=== PATIENT | male | born 1960 | race Hispanic/Latino ===

== ENCOUNTER 2016-12-10 18:33 | Emergency (ER) | payer MEDICARE, OTHER ==
[2016-12-10 18:35] VITALS: BMI 25.8
[2016-12-10] MEDS ORDERED: Lidocaine 5% Patch TD ONE (20:54)
== END 2016-12-10 21:06 | disposition home or self-care (01) ==
LOC: C.ER 18:33
DX: G89.29 Other chronic pain (principal); M54.5 Low back pain
CPT/HCPCS: 96372; 99281; J1885

== ENCOUNTER 2018-05-10 17:00 | Emergency (ER) | payer MEDICARE ==
[2018-05-10 17:00] VITALS: BMI 25.8
--- NOTE | 2018-05-10 17:43 | C.PDOC ---
History Of Present Illness Mr. Monique is a 57 year old [place] male PMH HTN, CAD s/p stent, COPD c/o L sided chest pain x3 days. The pain came on gradually, denies activity or exacerbating event. Advil Liquid Caps twice a day to no relief, moving his L UE exacerbate the pain. It's an aching pressure that ebbs every 2 hours without radiation to the neck, arm, or midsterum. States the pain is 10/10 and kept him from doing his usual hip PT (bilateral hip replacements: L in 05/11, R in 01/10). Admits shortness of breath and new pedal edema. Of note: has has a f/u appointment with drum sealer Dr. Martell next Marta, 05/19. Has been without any medications for the last 4 days. Is requesting oxycontin for pain management as he went through his allotted pain pills over a month ago, by taking 4 a day without tapering. <Octavia Traore - Last Filed: 05/10/18 19:39> <Octavia Traore - Last Filed: 05/10/18 19:39> <Ann Fink - Last Filed: 05/10/18 23:43> Time Seen by Provider: 05/10/18 17:40 Chief Complaint (Nursing): Chest Pain Past Medical History Vital Signs: Last Vital Signs Temp 98.3 F 05/10/18 17:03 Pulse 122 H 05/10/18 17:03 Resp 20 05/10/18 17:45 BP 125/84 05/10/18 17:03 Pulse Ox 100 05/10/18 17:50 - [facility] Procedures FLUOROSCOPY OF MULT COR ART USING L OSM CONTRAST (11/21/15) FLUOROSCOPY OF RIGHT AND LEFT HEART USING L OSM CONTRAST (11/21/15) INTRODUCE OF OTH THERAP SUBST INTO RESP TRACT, VIA OPENING (04/02/16) MEASURE CARDIAC SAMPL & PRESSURE, BILATERAL, PERC (11/21/15) NEBULIZER THERAPY (11/30/13) THERAPEUTIC EXERCISE TREATMENT OF MUSCULOSK LOW BACK/LE (04/02/16) <Octavia Traore - Last Filed: 05/10/18 19:39> Vital Signs: Last Vital Signs Temp 98.3 F 05/10/18 17:03 Pulse 122 H 05/10/18 17:03 Resp 22 05/10/18 17:03 BP 125/84 05/10/18 17:03 Pulse Ox 100 05/10/18 17:03 - Medical History PMH: Asthma, Bronchitis, CAD, CHF, COPD, Fractures (right foot), Hiatal Hernia, HTN, Hyperlipidemia, Pneumothorax, Schizophrenia (denies) Denies: Chronic Kidney Disease Surgical History: Coronary Stent (x2) - [facility] Procedures FLUOROSCOPY OF MULT COR ART USING L OSM CONTRAST (11/21/15) FLUOROSCOPY OF RIGHT AND LEFT HEART USING L OSM CONTRAST (11/21/15) INTRODUCE OF OTH THERAP SUBST INTO RESP TRACT, VIA OPENING (04/02/16) MEASURE CARDIAC SAMPL & PRESSURE, BILATERAL, PERC (11/21/15) NEBULIZER THERAPY (11/30/13) THERAPEUTIC EXERCISE TREATMENT OF MUSCULOSK LOW BACK/LE (04/02/16) Family History: States: Unknown Family Hx - Social History Hx Tobacco Use: Yes (10-15 cigarettes daily) Hx Alcohol Use: No Hx Substance Use: No - Immunization History Hx Tetanus Toxoid Vaccination: No Hx Influenza Vaccination: No Hx Pneumococcal Vaccination: No <Ann Fink - Last Filed: 05/10/18 23:43> Physical Exam - Physical Exam Appears: Non-toxic, No Acute Distress, Agitated Skin: Normal Color, Warm Head: Atraumatic, Normacephalic Eye(s): bilateral: Normal Inspection, PERRL, EOMI Oral Mucosa: Moist Teeth: No Dentures, Other (none) Chest: Symmetrical, Tenderness (L anterior anxillary pec major insertion TTP) Cardiovascular: Rhythm Regular (tachy) Respiratory: Normal Breath Sounds, Decreased Breath Sounds, Rales (bilateral lower lobe mild rales), Wheezing (diffuse expiratory wheeze) Gastrointestinal/Abdominal: Normal Exam, Bowel Sounds, Soft, No Tenderness, No Distention, No Guarding, No Rebound Extremity: Normal ROM, Tenderness (incision sites healing well, paper machine back tender to deep palpation), Pedal Edema (non pitting edema bilaterally) Pulses: Left Radial: Normal, Right Radial: Normal, Left Dorsalis Pedis: Normal, Right Dorsalis Pedis: Normal DTR: Knee (R): 2+, Knee (L): 2+ Neurological/Psych: Oriented x3, Normal Speech, Normal Cognition Gait: Steady <Octavia Traore - Last Filed: 05/10/18 19:39> ED Course And Treatment - Laboratory Results Result Diagrams: 05/10/18 18:36 05/10/18 18:36 <Octavia Traore - Last Filed: 05/10/18 19:39> - Laboratory Results Result Diagrams: 05/10/18 18:36 05/10/18 18:36 O2 Sat by Pulse Oximetry: 100 <Ann Fink - Last Filed: 05/10/18 23:43> Supervising Attending Note - Supervising Attending Note The Documented history was done by the: Physician Explosive Operator Supervisor, Attending Physician The documented physical exam was done by the: Physician Explosive Operator Supervisor, Attending Physician - Attestation: I have personally seen and examined this patient.: Yes I have fully participated in the care of the patient.: Yes I have reviewed all pertinent clinical information, including history, physical exam and plan: Yes <Ann Fink - Last Filed: 05/10/18 23:43> Medical Decision Making Medical Decision Making: CBC, CMP unremarkable Mg 2.1, P 3.4, BNP 60.4 Trop neg, d-dimer 532 coags normal EtOH neg CXR PA/L - no focal consolidation. Large retrocardiac air-fluid level likely related to large hiatal hernia. EKG - Sinus tachy at 121, left axis deviation, no ST elevations UDS Toradol, Flexiril given for pain <Octavia Traore - Last Filed: 05/10/18 19:39> Medical Decision Making: CT Impression: 1. No evidence of pulmonary embolism 2. Relatively severe upper lobes predominant paraseptal and centrilobar emphysema. 3. Severe biapical fibronodular scarring. 4. Large hiatal hernia. 5. The heart is mildly enlarged with coronary arterial calcifications. 6. Mild bilateral adenopathy, non-specific possibly reactive. 1130 On reeval pt is stable with no changes. Tachycardic but no acute distress. Repeat troponin negative. Stable for dc. <Ann Fink - Last Filed: 05/10/18 23:43> Disposition <Octavia Traore - Last Filed: 05/10/18 19:39> Counseled Patient/Family Regarding: Studies Performed, Diagnosis - Disposition Disposition Time: 23:39 <Ann Fink - Last Filed: 05/10/18 23:43> - Disposition Referrals: [facility] [Outside] [facility] [place] [Outside] Disposition: HOME/ ROUTINE Condition: STABLE Additional Instructions: follow up at clinic in 1-2 days for reevaluation Instructions: Chest Pain That Is Not Caused by the Heart (DC), Tachycardia (DC) Forms: [employer] (Setswana) - Clinical Impression Clinical Impression: Chest wall pain - PA / NNP / Resident Statement MD/DO has reviewed & agrees with the documentation as recorded. MD/DO has examined the patient and agrees with the treatment plan. <Octavia Traore - Last Filed: 05/10/18 19:39>
[2018-05-10 18:40] LABS: BASO # 0.1 K/uL (0.0-0.2); BASO % 0.7 % (0.0-2.0); EOS # 0.6 K/uL (0.0-0.7); EOS % 6.3 % (0.0-4.0); LYMPH # 2.6 K/uL (1.0-4.3); LYMPH % 29.1 % (20.0-40.0); MEAN CORPUSCULAR HEMOGLOBIN 22.9 pg (27.0-31.0); MEAN CORPUSCULAR HGB CONC 31.4 g/dL (33.0-37.0); MEAN PLATELET VOLUME 8.6 fL (7.2-11.7); MONO # 0.6 K/uL (0.0-0.8); MONO % 6.1 % (0.0-10.0); NEUT # 5.2 K/uL (1.8-7.0); NEUT % 57.8 % (50.0-75.0); RBC 4.78 Mil/uL (4.40-5.90); RED CELL DISTRIBUTION WIDTH 17.3 % (11.5-14.5)
--- NOTE | 2018-05-10 18:47 | RAD ---
HISTORY: SOB COMPARISON: Chest x-ray performed 08/23/15 TECHNIQUE: Chest PA and lateral FINDINGS: LUNGS: Biapical pleural thickening. No focal consolidation. Please note that chest x-ray has limited sensitivity for the detection of pulmonary masses. PLEURA: No significant pleural effusion identified. No definite pneumothorax . CARDIOVASCULAR: Heart size appears within normal limits.Atherosclerotic calcification of the aorta. OSSEOUS STRUCTURES: Osseous demineralization. Mild degenerative changes. VISUALIZED UPPER ABDOMEN: Retrocardiac air-fluid level likely related to large hiatal hernia. OTHER FINDINGS: None. IMPRESSION: No focal consolidation. Large retrocardiac air-fluid level likely related to large hiatal hernia.
[2018-05-10 18:53] LABS: ALB/GLOB RATIO 1.1 (1.0-2.1); ALBUMIN 3.6 g/dL (3.5-5.0); ALT/SGPT 26 U/L (21-72); AST/SGOT 21 U/L (17-59); BLOOD UREA NITROGEN 10 mg/dL (9-20); CALCIUM 9.1 mg/dl (8.6-10.4); GFR NON-AFRICAN AMERICAN > 60
[2018-05-10 19:04] LABS: B-TYPE NATRIURETIC PEPTIDE 60.4 pg/mL (0-900)
[2018-05-10 19:10] LABS: INR 1.1; PROTHROMBIN TIME 11.5 SECONDS (9.7-12.2)
[2018-05-10 19:38] LABS: BENZODIAZEPINES, UR NEGATIVE (NEGATIVE); OPIATES, UR NEGATIVE (NEGATIVE); PHENCYCLIDINE, UR NEGATIVE (NEGATIVE)
[2018-05-10 19:54] LABS: BARBITURATES, UR NEGATIVE (NEGATIVE)
[2018-05-10] MEDS ORDERED: Iodixanol 320 MG/ML 100 ML BOTTLE IV ONE (21:12)
[2018-05-10 22:43] VITALS: RESP 20; TEMP 98.6
[2018-05-10 23:07] VITALS: BP 117/82; PULSE 101
[2018-05-10 23:38] VITALS: O2SAT 100
--- NOTE | 2018-05-11 10:05 | CT ---
Date of service: 05/10/2018 PROCEDURE: CT Chest with contrast (Pulmonary Angiogram) HISTORY: sob COMPARISON: None available. TECHNIQUE: Axial computed tomography images were obtained of the chest in the pulmonary arterial phase of enhancement. Coronal and sagittal reformatted images were created and reviewed. Intravenous contrast dose: 100 mL Visipaque 320 Radiation dose: Total exam DLP = 454.91 mGy-cm. This CT exam was performed using one or more of the following dose reduction techniques: Automated exposure control, adjustment of the mA and/or kV according to patient size, and/or use of iterative reconstruction technique. FINDINGS: PULMONARY ARTERIES: Unremarkable. No pulmonary embolism. AORTA: No acute findings. No thoracic aortic aneurysm. LUNGS: Centrilobular pulmonary emphysema predominantly in the upper lobes. No infiltrate. No pulmonary mass. PLEURAL SPACES: Unremarkable. No effusion or pneumothorax. HEART: Unremarkable. No cardiomegaly. No significant pericardial effusion. LYMPH NODES: No lymphadenopathy. BONES, CHEST WALL: Unremarkable. No fracture or destructive lesion OTHER FINDINGS: Moderate paraesophageal hiatal hernia IMPRESSION: No evidence of pulmonary embolism. Moderate sliding hiatal hernia. Centrilobular pulmonary emphysema. No additional abnormality. The preliminary findings for this examination were reported by [facility] at 10:15 P.M. ON 05/10/2028. There is concurrence of this report with the preliminary findings.
== END 2018-05-11 00:01 | disposition home or self-care (01) ==
LOC: C.ER 17:00
DX: R07.89 Other chest pain (principal)
CPT/HCPCS: 71046; 71275; 80053; 83735; 83880; 84100; 84484; 85025; 85378; 85610; 85730; 93005; 96374; 99285; G0480; J1885; Q9967